=== PATIENT | female | born 1985 | race Caucasian/White ===

== ENCOUNTER → 2016-03-29 | Outpatient (CLI) | payer BC ==
[~2016-03-29] VITALS: Ht 167.6 cm; Wt 59.5 kg
[~2016-03-29] MED LIST: Motrin PO; PRENATAL TABLE1 EAC3 PO; PROBIOTIC1 EAC1 PO
[2016-03-29 14:16] VITALS: BP 102/62
== END | disposition home or self-care (01) ==
LOC: IVINF 13:30
DX: O36.0920 Maternal care for other rhesus isoimmunization, second trimester, not applicable or unspecified (principal); Z3A.28 28 weeks gestation of pregnancy; Z88.1 Allergy status to other antibiotic agents
CPT/HCPCS: 96372; J2790

== ENCOUNTER 2016-06-16 12:09 | Inpatient (IN) | payer BC, OTHER ==
[~2016-06-16] VITALS: Ht 167.6 cm; Wt 69.4 kg
[2016-06-16] VITALS (8 sets, daily range): BP systolic 99–120; BP diastolic 65–73
[2016-06-16 13:25] LABS: EOSINOPHIL (%) 0 % (0-5); HEMATOCRIT 39.8 % (36.0-46.0); IMMATURE GRANULOCYTE (%) 0.4 % (0.0-0.7); IMMATURE GRANULOCYTE COUNT 0.1 K/uL; INSTRUMENT ABS NEUTROPHIL CT 10.3 K/uL; LYMPHOCYTE COUNT 2.9 K/uL (1.0-2.8); MCH 29.2 PG (29.0-34.0); MCHC 34.4 G/DL (30.0-36.0); MCV 84.9 FL (83-99); MEAN PLAT.VOLUME 10.1 uM^3 (9.5-12.4); MONOCYTE (%) 4.7 % (3-12); MONOCYTE COUNT 0.7 K/uL (0-0.8); NEUTROPHIL (%) 74.1 % (45-76); NEUTROPHIL COUNT 10.3 K/uL (1.8-6.4); PLATELET COUNT 192 K/uL (156-360); RBC DIS.WIDTH-CV 16.1 % (11.8-14.6); RBC DIS.WIDTH-SD 50.1 % (39-53); RED BLOOD COUNT 4.69 M/uL (3.80-5.20); WHITE BLOOD COUNT 13.9 K/uL (4.1-10.2)
[2016-06-17 07:09] LABS: BASOPHIL COUNT 0.1 K/uL (0-0.1); EOSINOPHIL (%) 0.4 % (0-5); EOSINOPHIL COUNT 0.1 K/uL (0-0.3); HEMATOCRIT 33.5 % (36.0-46.0); IMMATURE GRANULOCYTE (%) 0.6 % (0.0-0.7); IMMATURE GRANULOCYTE COUNT 0.1 K/uL; INSTRUMENT ABS NEUTROPHIL CT 11.3 K/uL; LYMPHOCYTE COUNT 3.5 K/uL (1.0-2.8); MCH 29.3 PG (29.0-34.0); MCHC 33.7 G/DL (30.0-36.0); MCV 86.8 FL (83-99); MEAN PLAT.VOLUME 10.2 uM^3 (9.5-12.4); NEUTROPHIL (%) 70.7 % (45-76); NEUTROPHIL COUNT 11.3 K/uL (1.8-6.4); PLATELET COUNT 161 K/uL (156-360); RBC DIS.WIDTH-CV 16.1 % (11.8-14.6); RBC DIS.WIDTH-SD 51.2 % (39-53); RED BLOOD COUNT 3.86 M/uL (3.80-5.20)
[2016-06-17 07:17] VITALS: BP 104/67
[2016-06-17] MEDS ORDERED: IBUPROFEN800 MG PO (09:40)
[2016-06-17 15:36] VITALS: BP 105/67
== END 2016-06-17 18:15 | disposition home or self-care (01) | DRG 775 ==
LOC: LDRP-OP 12:09 → 2WEST 12:10 → LDRP-OP 07-21 11:25
PROVIDERS: Advanced Practice Midwife
DX: O70.1 Second degree perineal laceration during delivery (principal); O62.3 Precipitate labor; Z37.0 Single live birth; Z3A.39 39 weeks gestation of pregnancy
CPT/HCPCS: 85025